=== PATIENT | female | born 1990 | race Caucasian/White ===

== ENCOUNTER 2018-07-04 14:46 | Emergency (ER) | payer MEDICAID ==
[~2018-07-04] VITALS: Ht 170.2 cm; Wt 64.4 kg
[2018-07-04 15:03] VITALS: Ht 170.2 cm; Wt 64.4 kg
[2018-07-04 16:30] LABS: BASOPHIL % 0.3 % (0-2); PLATELET COUNT 267 x10^3mcL (130-400)
[2018-07-04 16:31] LABS: RED CELL DISTRIBUTION WIDTH 15.2 % (11.5-14.5)
[2018-07-04 16:46] LABS: CALCIUM 8.2 mg/dL (8.5-10.1); CHLORIDE SERUM 104 mmol/L (98-107); CREATININE SERUM 0.6 mg/dL (0.6-1.0); GFR1 > 60 mL/min; GLUCOSE SERUM 107 mg/dL (74-106); POTASSIUM SERUM 3.5 mmol/L (3.5-5.1); SODIUM SERUM 143 mmol/L (136-145)
[2018-07-04 17:25] VITALS: BP 100/60
== END 2018-07-04 17:25 | disposition home or self-care (01) ==
LOC: ED 14:46
PROVIDERS: Emergency Medicine
DX: R42 Dizziness and giddiness (principal); D64.9 Anemia, unspecified; R11.2 Nausea with vomiting, unspecified; R51 Headache; J00 Acute nasopharyngitis [common cold]
CPT/HCPCS: 36415; J8597; Q0162